=== PATIENT | male | born 1970 | race African-American/Black ===

== ENCOUNTER 2021-03-28 09:52 | Inpatient (IN) | payer MEDICAID, OTHER ==
[~2021-03-28] VITALS: Ht 172.7 cm; Wt 108.9 kg
[2021-03-28] MEDS ORDERED: ADENOSINE 3 MG/ML 2ML VIAL IV ONE ×4 (10:45→11:00)
[2021-03-28] MEDS ORDERED: LORAZEPAM 2MG/ML CPJ IV ONE (10:45)
[2021-03-28] MEDS ORDERED: DILTIAZEM HCL 5MG/ML 5ML VIAL IV ONE (11:00)
[2021-03-28] MEDS ORDERED: DILTIAZEM HCL 125 MG in DEXT 5% WATER 100 ML IV ONE (11:00)
[2021-03-28 11:24] LABS: BASOPHILS % 0.3 % (0.0-2.0); EOSINOPHILS % 0.1 % (0.0-5.0); HEMATOCRIT. 47.5 % (42.0-52.0); HEMOGLOBIN. 15.9 g/dL (14.0-18.0); LYMPHOCYTES % 12.1 % (20.0-50.0); MEAN CORPUSCULAR HEMOGLOBIN 29.3 pg (28.0-32.0); MEAN CORPUSCULAR VOLUME 87.4 fL (80.0-94.0); MEAN PLATELET VOLUME 7.8 fl (7.4-10.4); MONOCYTES % 4.7 % (2.0-8.0); NEUTROPHILS % 82.8 % (40.0-76.0); PLATELET 196 x1000/uL (130-400); RED BLOOD CELL COUNT 5.44 mill/uL (4.7-6.1)
[2021-03-28 11:29] LABS: CHLORIDE 104 mEq/L (98-107)
[2021-03-28 11:32] LABS: PROTHROMBIN TIME 10.6 sec (9.6-11.0)
[2021-03-28] MEDS ORDERED: CHLORDIAZEPOXIDE 25MG CAPSULE PO ONE (11:45)
[2021-03-28] MEDS ORDERED: SODIUM CHLORIDE 0.9% 1,000 ML IV ONE (11:45)
[2021-03-28] MEDS ORDERED: CHLORDIAZEPOXIDE 5 MG CAPSULE PO NR (12:15)
[2021-03-28 12:26] LABS: CLARITY URINE CLOUDY (CLEAR); COLOR URINE YELLOW (YELLOW); KETONES URINE TRACE (NEGATIVE); LEUKOCYTE ESTERASE URINE NEGATIVE (NEGATIVE); NITRITE URINE NEGATIVE (NEGATIVE); OCCULT BLOOD URINE 3+ (NEGATIVE); PROTEIN URINE 4+ (NEGATIVE); SPECIFIC GRAVITY URINE 1.029 (1.005-1.030); UROBILINOGEN URINE 0.2 E.U./dL (0.2-1.0)
[2021-03-28] MEDS ORDERED: LORAZEPAM 0.5MG TABLET PO PRN (15:15)
[2021-03-28] MEDS ORDERED: DOCUSATE SODIUM 100MG CAPSULE PO PRN (15:15)
[2021-03-28] MEDS ORDERED: ACETAMINOPHEN 325MG TABLET PO PRN ×2 (15:15)
[2021-03-28] MEDS ORDERED: HYDROCODONE/ACETAMINOPHEN 5/325MG TABLET PO PRN (15:15)
[2021-03-28] MEDS ORDERED: IPRATROPIUM/ALBUTEROL 0.5-3(2.5)MG/3ML NEB HHN PRN (15:15)
[2021-03-28] MEDS ORDERED: ONDANSETRON HCL 4MG/2ML INJ IV PRN (15:15)
[2021-03-28] MEDS ORDERED: NALOXONE HCL 0.4MG/ML VIAL IV PRN (15:30)
[2021-03-28] MEDS ORDERED: LORAZEPAM 2MG/ML CPJ IV PRN (15:30)
[2021-03-28 16:19] LABS: BG BASE EXCESS 2.7 mmol/L (-2.0-2.0); BG CARBOXYHEMOGLOBIN 0.3 % (0.5-1.5); BG DEOXYHEMOGLOBIN 5.9 % (0.0-5.0); BG FRACTION INSPIRED OXYGEN 28; BG HCO3 ACT 28.2 mmol/L (22.0-26.0); BG METHEMOGLOBIN 0.6 % (0.0-1.5); BG OXYHEMOGLOBIN 93.2 % (94.0-97.0); BG PCO2 46.2 mmHg (35.0-45.0); BG PH 7.403 (7.350-7.450); BG PO2 70.8 mmHg (75.0-100.0); BG SAMPLE SITE LEFT RADIAL; BG TOTAL HEMOGLOBIN 16.7 g/dL (12.0-18.0); BG VENT MODE NASAL CANNULA
[2021-03-28] MEDS: CLONIDINE 0.1MG TABLET PO SCH ×2 (16:26→22:53)
[2021-03-28] MEDS: CLONIDINE 0.1MG TABLET PO PRN (19:51)
[2021-03-28 23:19] LABS: PHOSPHORUS 2.4 mg/dL (2.5-4.9)
[2021-03-28 23:42] LABS: HEPATITIS B SURFACE ANTIGEN NEGATIVE
[2021-03-28] MEDS: CHLORDIAZEPOXIDE 5 MG CAPSULE PO SCH (23:42)
[2021-03-28 23:58] VITALS: BP 166/112
[2021-03-29] VITALS (30 sets, daily range): BP systolic 129–180; BP diastolic 68–125
[2021-03-29 00:11] LABS: HEPATITIS A AB IGM NEGATIVE (NEGATIVE)
[2021-03-29] MEDS: DILTIAZEM HCL 125 MG in DEXT 5% WATER 100 ML IV SCH ×3 (02:49→21:13)
[2021-03-29 03:20] LABS: *AMPHETAMINES SCREEN URINE NEGATIVE (NEGATIVE); *BARBITURATES SCREEN URINE NEGATIVE (NEGATIVE); *BENZODIAZEPINES SCREEN URINE PRESUMTIVE POSITIVE (NEGATIVE); *COCAINE SCREEN URINE NEGATIVE (NEGATIVE)
[2021-03-29 03:21] LABS: CANNABINOID URINE SCREEN NEGATIVE (NEGATIVE); METHADONE URINE SCREEN NEGATIVE (NEGATIVE); OPIATES URINE SCREEN PRESUMTIVE POSITIVE (NEGATIVE); PHENCYCLIDINE URINE SCREEN NEGATIVE (NEGATIVE)
[2021-03-29] MEDS: CLONIDINE 0.1MG TABLET PO SCH ×3 (05:41→21:09)
[2021-03-29] MEDS: CHLORDIAZEPOXIDE 5 MG CAPSULE PO SCH ×3 (05:44→21:09)
[2021-03-29 06:56] LABS: BASOPHILS % 0.3 % (0.0-2.0); EOSINOPHILS % 0.7 % (0.0-5.0); HEMATOCRIT. 45.2 % (42.0-52.0); HEMOGLOBIN. 14.9 g/dL (14.0-18.0); LYMPHOCYTES % 21.1 % (20.0-50.0); MONOCYTES % 7.7 % (2.0-8.0); NEUTROPHILS % 70.2 % (40.0-76.0); PLATELET 191 x1000/uL (130-400); RED BLOOD CELL COUNT 5.13 mill/uL (4.7-6.1); RED CELL DISTRIBUTION WIDTH 14.2 % (11.6-14.6)
[2021-03-29 07:04] LABS: CHLORIDE 105 mEq/L (98-107)
[2021-03-29] MEDS ORDERED: ASPIRIN 81MG EC TABLET PO SCH (09:00)
[2021-03-29] MEDS ORDERED: MAGNESIUM 2 G PREMIX 50 ML IV NR (16:00)
[2021-03-29] MEDS ORDERED: SODIUM PHOS,M-BASIC-D-BASIC 15 MM in DEXT 5% WATER 245 ML IV NR (16:00)
[2021-03-29] MEDS: DEXAMETHASONE 4MG/ML 1ML VIAL IV SCH (18:04)
[2021-03-29] MEDS: NICARDIPINE 100 MG in SODIUM CHLORIDE 0.9% 60 ML IV PRN (18:06)
[2021-03-29] MEDS ORDERED: CLON0.2T PO (20:06)
[2021-03-29] MEDS ORDERED: LOSA50TA41 PO ×2 (20:06→21:03)
[2021-03-29] MEDS ORDERED: LEVETIRACETAM 500 MG in SODIUM CHLORIDE 0.9% 100 ML IV SCH (21:00)
[2021-03-29] MEDS: LEVETIRACETAM 500MG PREMIX 100 ML IV SCH (21:51)
[2021-03-30] VITALS (65 sets, daily range): BP systolic 102–145; BP diastolic 57–100
[2021-03-30] MEDS: CLONIDINE 0.1MG TABLET PO PRN
[2021-03-30] MEDS ORDERED: VANCOMYCIN 1500MG in DEXTROSE 5% WATER 250ML IV NR (01:00)
[2021-03-30] MEDS: DEXAMETHASONE 4MG/ML 1ML VIAL IV SCH ×4 (05:18→18:30)
[2021-03-30] MEDS: CLONIDINE 0.1MG TABLET PO SCH ×3 (05:19→21:00)
[2021-03-30] MEDS: CHLORDIAZEPOXIDE 5 MG CAPSULE PO SCH ×3 (05:19→21:00)
[2021-03-30] MEDS ORDERED: HYDRALAZINE 20MG/ML VIAL IV PRN (05:30)
[2021-03-30 05:50] LABS: HEMATOCRIT. 48.9 % (42.0-52.0); HEMOGLOBIN. 15.8 g/dL (14.0-18.0); LYMPHOCYTES % 10.3 % (20.0-50.0); MEAN CORPUSCULAR HEMOGLOBIN 28.7 pg (28.0-32.0); MEAN CORPUSCULAR VOLUME 88.7 fL (80.0-94.0); MEAN PLATELET VOLUME 8.2 fl (7.4-10.4); MONOCYTES % 1.8 % (2.0-8.0); NEUTROPHILS % 87.9 % (40.0-76.0); PLATELET 209 x1000/uL (130-400); RED BLOOD CELL COUNT 5.52 mill/uL (4.7-6.1)
[2021-03-30 05:58] LABS: CHLORIDE 103 mEq/L (98-107)
[2021-03-30 06:08] LABS: CARCINO EMBRYONIC ANTIGEN 2.6 ng/ml; PROSTRATE SPECIFIC AG TOTAL 0.78 ng/mL (0.0-4.0)
[2021-03-30] MEDS: NICARDIPINE 100 MG in SODIUM CHLORIDE 0.9% 60 ML IV PRN ×3 (07:27→14:40)
[2021-03-30] MEDS: LEVETIRACETAM 500MG PREMIX 100 ML IV SCH ×2 (09:12→20:10)
[2021-03-30] MEDS ORDERED: VANCOMYCIN 1 G PREMIX 200 ML IV SCH (11:00)
[2021-03-31] VITALS (85 sets, daily range): BP systolic 109–162; BP diastolic 40–106
[2021-03-31] MEDS ORDERED: VANCOMYCIN 750 MG PREMIX 150 ML IV SCH
[2021-03-31] MEDS: DEXAMETHASONE 4MG/ML 1ML VIAL IV SCH ×3 (00:24→11:37)
[2021-03-31] MEDS: NICARDIPINE 100 MG in SODIUM CHLORIDE 0.9% 60 ML IV PRN (00:25)
[2021-03-31] MEDS: DILTIAZEM HCL 125 MG in DEXT 5% WATER 100 ML IV SCH (04:00)
[2021-03-31] MEDS: CLONIDINE 0.1MG TABLET PO SCH ×2 (06:19→22:30)
[2021-03-31] MEDS: CHLORDIAZEPOXIDE 5 MG CAPSULE PO SCH ×3 (06:22→22:00)
[2021-03-31] MEDS: LEVETIRACETAM 500MG PREMIX 100 ML IV SCH ×2 (07:47→22:30)
[2021-03-31] MEDS ORDERED: GADOTERATE MEGLUMINE 5 MMOL/10 ML VIAL IV ONE (10:43)
[2021-03-31] MEDS ORDERED: CLONIDINE 0.1MG TABLET PO NR (11:15)
[2021-03-31] MEDS: SODIUM CHLORIDE 0.9% 1,000 ML IV SCH (12:19)
[2021-03-31 16:53] LABS: CREATINE KINASE 1053 IU/L (39-308)
[2021-03-31] MEDS ORDERED: HEMORRHOIDAL SUPP PR SCH (18:00)
[2021-04-01] VITALS (38 sets, daily range): BP systolic 123–157; BP diastolic 71–115
[2021-04-01] MEDS: SODIUM CHLORIDE 0.9% 1,000 ML IV SCH ×3 (01:36→21:36)
[2021-04-01 05:27] LABS: HEMATOCRIT. 44.8 % (42.0-52.0); HEMOGLOBIN. 14.5 g/dL (14.0-18.0); MEAN CORPUSCULAR HEMOGLOBIN 28.8 pg (28.0-32.0); MEAN CORPUSCULAR VOLUME 88.9 fL (80.0-94.0); MEAN PLATELET VOLUME 8.3 fl (7.4-10.4); PLATELET 182 x1000/uL (130-400); RED BLOOD CELL COUNT 5.04 mill/uL (4.7-6.1); RED CELL DISTRIBUTION WIDTH 13.9 % (11.6-14.6)
[2021-04-01 05:49] LABS: PHOSPHORUS 5.5 mg/dL (2.5-4.9)
[2021-04-01] MEDS: CHLORDIAZEPOXIDE 5 MG CAPSULE PO SCH ×3 (06:00→23:52)
[2021-04-01 06:03] LABS: HEPATITIS B SURFACE ANTIGEN NEGATIVE
[2021-04-01] MEDS: CLONIDINE 0.1MG TABLET PO SCH ×3 (10:01→21:37)
[2021-04-01] MEDS: LEVETIRACETAM 500MG PREMIX 100 ML IV SCH ×2 (10:02→21:34)
[2021-04-01] MEDS ORDERED: CEFTRIAXONE 1,000 MG in DEXTROSE 5% WATER 50 ML IV SCH (16:00)
[2021-04-01 16:33] LABS: CLARITY URINE CLEAR (CLEAR); COLOR URINE YELLOW (YELLOW); KETONES URINE NEGATIVE (NEGATIVE); LEUKOCYTE ESTERASE URINE NEGATIVE (NEGATIVE); NITRITE URINE NEGATIVE (NEGATIVE); OCCULT BLOOD URINE NEGATIVE (NEGATIVE); PROTEIN URINE NEGATIVE (NEGATIVE); SPECIFIC GRAVITY URINE 1.013 (1.005-1.030); UROBILINOGEN URINE 0.2 E.U./dL (0.2-1.0)
[2021-04-01] MEDS ORDERED: LORAZEPAM 2MG/ML CPJ IV PRN (18:00)
[2021-04-01] MEDS: NITROGLYCERIN OINT 1GM/INCH UDPKT TD SCH ×2 (18:10→21:38)
[2021-04-01 20:40] LABS: PLATELET ESTIMATE NORMAL
[2021-04-02] VITALS (8 sets, daily range): BP systolic 119–141; BP diastolic 72–98
[2021-04-02] MEDS: CHLORDIAZEPOXIDE 5 MG CAPSULE PO SCH (06:27)
[2021-04-02] MEDS: CLONIDINE 0.1MG TABLET PO SCH (06:27)
[2021-04-02] MEDS: NITROGLYCERIN OINT 1GM/INCH UDPKT TD SCH (06:28)
[2021-04-02] MEDS: SODIUM CHLORIDE 0.9% 1,000 ML IV SCH (06:29)
[2021-04-02] MEDS ORDERED: LEVETIRACETAM 500MG TABLET PO SCH (09:00)
[2021-04-02] MEDS: IPRATROPIUM/ALBUTEROL 0.5-3(2.5)MG/3ML NEB HHN SCH ×2 (09:20)
[2021-04-02] MEDS ORDERED: CLON0.1T PO (12:21)
[2021-04-02] MEDS ORDERED: ISOS30TA91 PO (12:21)
[2021-04-02] MEDS ORDERED: KEPP500 PO (12:21)
[2021-04-02 13:06] LABS: ANTI-NUCLEAR ANTIBODIES DIRECT Negative (Negative)
[2021-04-02] MEDS ORDERED: CLONIDINE 0.1MG TABLET PO SCH (21:00)
[2021-04-03] MEDS ORDERED: ISOSORBIDE MONONITRATE 30MG TABLET SR 24HR PO SCH (09:00)
[2021-04-03 15:09] LABS: ATYPICAL P-ANCA <1:20 titer (Neg:<1:20); CYTOPLASMIC C-ANCA <1:20 titer (Neg:<1:20); PERINUCLEAR P-ANCA <1:20 titer (Neg:<1:20)
[2021-04-03 17:06] LABS: ANTI-MYELOPEROXIDASE AB < 9.0 U/mL (0.0-9.0); ANTI-PROTEINASE 3 ABS < 3.5 U/mL (0.0-3.5)
== END 2021-04-02 14:01 | disposition home or self-care (01) | DRG 44 ==
LOC: ER 10:06 → MICUSO 11:44 → EDBEDREQ 11:49 → EDBEDREQTM 11:49 → 3WST 22:48 → ENRESERV 22:49 → MICUNO 03-29 17:27 → 5EST 04-01 07:28
PROVIDERS: ADMIT Internal Medicine; ATTEND Internal Medicine
PROC: 4A10X4Z Monitoring of Central Nervous Electrical Activity, External Approach (ICD-10-PCS; principal; 2021-04-01)
DX: I61.1 Nontraumatic intracerebral hemorrhage in hemisphere, cortical (principal); J96.01 Acute respiratory failure with hypoxia; G93.6 Cerebral edema; N18.4 Chronic kidney disease, stage 4 (severe); N17.9 Acute kidney failure, unspecified; I47.1 Supraventricular tachycardia; E83.42 Hypomagnesemia; E83.39 Other disorders of phosphorus metabolism; G40.909 Epilepsy, unspecified, not intractable, without status epilepticus; I48.0 Paroxysmal atrial fibrillation; E87.2 Acidosis; I12.9 Hypertensive chronic kidney disease with stage 1 through stage 4 chronic kidney disease, or unspecified chronic kidney disease; D72.829 Elevated white blood cell count, unspecified; E87.6 Hypokalemia; I16.1 Hypertensive emergency; F10.239 Alcohol dependence with withdrawal, unspecified; E66.09 Other obesity due to excess calories; G47.33 Obstructive sleep apnea (adult) (pediatric); Z20.822 Contact with and (suspected) exposure to COVID-19; R31.29 Other microscopic hematuria; R73.9 Hyperglycemia, unspecified; K76.0 Fatty (change of) liver, not elsewhere classified; Z80.1 Family history of malignant neoplasm of trachea, bronchus and lung; Z78.1 Physical restraint status; Y90.9 Presence of alcohol in blood, level not specified; Z82.49 Family history of ischemic heart disease and other diseases of the circulatory system; Z79.899 Other long term (current) drug therapy; Z68.36 Body mass index [BMI] 36.0-36.9, adult; Z91.19 Patient's noncompliance with other medical treatment and regimen; Z91.14 Patient's other noncompliance with medication regimen
CPT/HCPCS: 36415; 36600; 70551; 70552; 71045; 71250; 74176; 76700; 80048; 80053; 80061; 80076; 80202; 80305; 81003; 82375; 82378; 82550; 82570; 82805; 83036; 83520; 83605; 83735; 83880; 84100; 84145; 84153; 84156; 84443; 84484; 85025; 85379; 86038; 86160; 86256; 86301; 86705; 86709; 86803; 87340; 87426; 93005; 93306; 95816; 99291; A9577; J0153; J0360; J0696; J1100; J1953; J2060; J3370; J3475; J3490; J7030; J7040; J7050; J7060; G0103

== ENCOUNTER 2021-07-24 17:53 | Emergency (ER) | payer MEDICAID, OTHER ==
[~2021-07-24] VITALS: Ht 172.7 cm; Wt 105.0 kg
[~2021-07-24 17:53] MED LIST: CLON0.1T PO; ISOS30TA91 PO; KEPP500 PO
[2021-07-24] MEDS ORDERED: AMLODIPINE 5MG TABLET PO ONE (18:30)
[2021-07-24 18:57] LABS: BASOPHILS % 0.4 % (0.0-2.0); EOSINOPHILS % 0.4 % (0.0-5.0); HEMATOCRIT. 44.9 % (42.0-52.0); HEMOGLOBIN. 14.4 g/dL (14.0-18.0); LYMPHOCYTES % 19.7 % (20.0-50.0); MEAN CORPUSCULAR HEMOGLOBIN 28.1 pg (28.0-32.0); MEAN CORPUSCULAR VOLUME 87.3 fL (80.0-94.0); MEAN PLATELET VOLUME 7.4 fl (7.4-10.4); MONOCYTES % 6.3 % (2.0-8.0); NEUTROPHILS % 73.2 % (40.0-76.0); PLATELET 233 x1000/uL (130-400); RED BLOOD CELL COUNT 5.15 mill/uL (4.7-6.1); RED CELL DISTRIBUTION WIDTH 13.8 % (11.6-14.6)
[2021-07-24 19:04] LABS: CHLORIDE 103 mEq/L (98-107)
[2021-07-24 19:13] VITALS: BP 218/133
[2021-07-24] MEDS ORDERED: AMLO5TAB4 MT (19:46)
== END 2021-07-24 20:20 | disposition home or self-care (01) ==
LOC: ER 18:02
DX: I16.0 Hypertensive urgency (principal); G40.909 Epilepsy, unspecified, not intractable, without status epilepticus
CPT/HCPCS: 36415; 80053; 85025; 93005; 99284

== ENCOUNTER 2021-10-23 13:36 | Emergency (ER) | payer MEDICAID, OTHER ==
[~2021-10-23] VITALS: Ht 172.7 cm; Wt 104.0 kg
[~2021-10-23 13:36] MED LIST changes: +AMLO5TAB4 MT
[2021-10-23] MEDS ORDERED: AMLODIPINE 5MG TABLET PO ONE (14:00)
[2021-10-23 15:08] LABS: CLARITY URINE CLEAR (CLEAR); COLOR URINE DARK YELLOW (YELLOW); KETONES URINE TRACE (NEGATIVE); LEUKOCYTE ESTERASE URINE NEGATIVE (NEGATIVE); NITRITE URINE NEGATIVE (NEGATIVE); OCCULT BLOOD URINE TRACE (NEGATIVE); PH URINE 5.5 (4.5-8.0); PROTEIN URINE 3+ (NEGATIVE); SPECIFIC GRAVITY URINE 1.024 (1.005-1.030)
[2021-10-23 15:37] LABS: BASOPHILS % 0.4 % (0.0-2.0); EOSINOPHILS % 0.1 % (0.0-5.0); HEMATOCRIT. 43.7 % (42.0-52.0); HEMOGLOBIN. 14.8 g/dL (14.0-18.0); LYMPHOCYTES % 11.8 % (20.0-50.0); MEAN CORPUSCULAR HEMOGLOBIN 29.3 pg (28.0-32.0); MEAN CORPUSCULAR VOLUME 86.5 fL (80.0-94.0); MEAN PLATELET VOLUME 7.5 fl (7.4-10.4); MONOCYTES % 7.2 % (2.0-8.0); NEUTROPHILS % 80.5 % (40.0-76.0); PLATELET 199 x1000/uL (130-400); RED BLOOD CELL COUNT 5.05 mill/uL (4.7-6.1); RED CELL DISTRIBUTION WIDTH 13.7 % (11.6-14.6)
[2021-10-23 15:43] LABS: CHLORIDE 103 mEq/L (98-107)
[2021-10-23 15:56] VITALS: BP 225/133
[2021-10-23] MEDS ORDERED: AMLO5TAB88 MT (16:14)
== END 2021-10-23 16:30 | disposition home or self-care (01) ==
LOC: ER 14:21
DX: I16.0 Hypertensive urgency (principal); R00.0 Tachycardia, unspecified; Z91.14 Patient's other noncompliance with medication regimen
CPT/HCPCS: 36415; 80053; 81003; 85025; 93005; 99284

== ENCOUNTER 2024-03-09 11:07 | Emergency (ER) | payer OTHER ==
[~2024-03-09] VITALS: Ht 177.8 cm; Wt 105.0 kg
[~2024-03-09 11:07] MED LIST changes: +AMLO10TA80 PO; +AMLO5TAB88 MT; +CHLO25CA11 MT; +HYDR12.54 PO; -ISOS30TA91 PO; +KEPP500 MT; -KEPP500 PO; +LISI30TA36 PO
[2024-03-09 11:11] VITALS: TEMP 97.9; O2SAT 96
[2024-03-09] MEDS: SODIUM CHLORIDE 0.9% 1,000 ML IV ONE (11:45)
[2024-03-09] MEDS: LORAZEPAM 2MG/ML INJ IV ONE (11:45)
[2024-03-09] MEDS: FOLIC ACID 1 MG, THIAMINE HCL 100 MG, MVI, ADULT NO.1 10 ML in DEXTROSE 5% WATER 1,000 ML IV ONE (12:01)
[2024-03-09] MEDS: CHLORDIAZEPOXIDE 25MG CAPSULE PO NR (12:03)
[2024-03-09] MEDS: CHLORDIAZEPOXIDE 25MG CAPSULE PO ONE (12:03)
[2024-03-09 12:31] LABS: BASOPHILS % 0.5 % (0.0-2.0); EOSINOPHILS % 0.1 % (0.0-5.0); HEMATOCRIT. 42.4 % (42.0-52.0); HEMOGLOBIN. 13.7 g/dL (14.0-18.0); LYMPHOCYTES % 9.1 % (20.0-50.0); MEAN CORPUSCULAR HEMOGLOBIN 28.5 pg (28.0-32.0); MEAN CORPUSCULAR HGB CONC 32.2 g/dL (31.0-37.0); MEAN CORPUSCULAR VOLUME 88.3 fL (80.0-94.0); MEAN PLATELET VOLUME 6.9 fl (7.4-10.4); MONOCYTES % 10.8 % (2.0-8.0); NEUTROPHILS % 79.5 % (40.0-76.0); PLATELET 231 x1000/uL (130-400); RED CELL DISTRIBUTION WIDTH 13.1 % (11.6-14.6); WHITE BLOOD COUNT 12.1 x1000/uL (4.5-11.0)
[2024-03-09 12:39] LABS: CHLORIDE 96 mEq/L (98-107); POTASSIUM 3.8 mEq/L (3.5-5.1); SODIUM 132 mEq/L (136-145)
[2024-03-09 12:40] LABS: CALCIUM 10.4 mg/dL (8.7-10.4); CARBON DIOXIDE 30 mEq/L (21-32)
[2024-03-09 12:45] LABS: GLUCOSE 118 mg/dL (70-105); UREA NITROGEN BLOOD 12 mg/dL (9-23)
[2024-03-09 12:47] LABS: ETHANOL BLOOD < 10 mg/dL (<10)
[2024-03-09] MEDS ORDERED: CLON-493 MT (14:04)
[2024-03-09] MEDS ORDERED: HYDR12.54 MT (14:04)
[2024-03-09] MEDS ORDERED: LISI30TA36 MT (14:04)
[2024-03-09] MEDS ORDERED: NAPR-681 MT (14:07)
[2024-03-09] MEDS ORDERED: ACET-2708 MT (14:07)
[2024-03-09 14:21] VITALS: BP 162/110; PULSE 104; RESP 22
== END 2024-03-09 14:29 | disposition home or self-care (01) ==
LOC: ER 11:07
DX: M25.532 Pain in left wrist (principal); R25.1 Tremor, unspecified; F10.239 Alcohol dependence with withdrawal, unspecified; R00.0 Tachycardia, unspecified; I10 Essential (primary) hypertension; Y90.0 Blood alcohol level of less than 20 mg/100 ml
CPT/HCPCS: 80048; 80320; 85025; 36415; 73110; 93005; 96365; 96366; 96375; 99285; J3490 ×2; J2060; J3411; J7070; J7030; G0480

== ENCOUNTER 2025-05-07 14:55 | Emergency (ER) | payer MEDICAID ==
[~2025-05-07] VITALS: Ht 172.7 cm; Wt 97.0 kg
[~2025-05-07 14:55] MED LIST changes: +ACET-2708 MT; -AMLO5TAB4 MT; +AMLO5TAB6 MT; +CLON-493 MT; +HYDR12.54 MT; +LISI30TA36 MT; +NAPR-681 MT
[2025-05-07 14:57] VITALS: O2SAT 97
[2025-05-07 15:27] VITALS: BP 140/99; PULSE 96; RESP 18; TEMP 36.7; O2SAT 97
[2025-05-07] MEDS ORDERED: IBUP-2028 MT (19:03)
== END 2025-05-07 19:48 | disposition home or self-care (01) ==
LOC: ER 15:16
DX: M25.521 Pain in right elbow (principal); M25.421 Effusion, right elbow; I10 Essential (primary) hypertension; Z79.899 Other long term (current) drug therapy; F10.90 Alcohol use, unspecified, uncomplicated; Y90.9 Presence of alcohol in blood, level not specified
CPT/HCPCS: 99284; 29105; 73200; 73070; A6449; A4565